=== PATIENT | female | born 1995 | race Caucasian/White ===

== ENCOUNTER 2022-01-14 07:24 | Emergency (ER) | payer MEDICAID ==
[~2022-01-14] VITALS: Ht 152.4 cm; Wt 42.6 kg
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
--- NOTE | 2022-01-14 08:10 | NUR ---
X-RAY DONE AT BED SIDE
--- NOTE | 2022-01-14 09:07 | NUR ---
NO PAIN NO COMPAIN AT THIS TIME
[2022-01-14] MEDS ORDERED: IBUP-1955 PO (09:24)
--- NOTE | 2022-01-14 09:30 | NUR ---
Criselda at bed side
--- NOTE | 2022-01-14 10:08 | NUR ---
D/C INSTRACTION given to pt fully and verblized understood d/c home accompany y
[2022-01-14 10:13] VITALS: BP 106/66
== END 2022-01-14 10:13 | disposition home or self-care (01) ==
LOC: ER 07:33
DX: S83.005A Unspecified dislocation of left patella, initial encounter (principal); Z88.2 Allergy status to sulfonamides; Z88.1 Allergy status to other antibiotic agents; X50.1XXA Overexertion from prolonged static or awkward postures, initial encounter; Y93.89 Activity, other specified; Y92.89 Other specified places as the place of occurrence of the external cause; Y99.8 Other external cause status
CPT/HCPCS: 73564-TC